=== PATIENT | female | born 1950 | race Caucasian/White ===

== ENCOUNTER 2019-11-22 07:06 | Outpatient (REF) | payer MEDICARE, SELFPAY ==
[2019-11-22 11:02] LABS: Cholesterol 270 mg/dL; HDL Cholesterol 72 mg/dL; LDL Cholesterol Calculated 182 mg/dl; Triglycerides 83 mg/dL
== END 2019-11-22 07:07 | disposition home or self-care (01) ==
LOC: HO.WFDLDS 07:06
PROVIDERS: PCP Internal Medicine; Visit Provider Internal Medicine
DX: E78.5 Hyperlipidemia, unspecified (principal)
CPT/HCPCS: 80061

== ENCOUNTER 2020-09-11 07:05 | Outpatient (REF) | payer MEDICARE, BC, SELFPAY ==
[2020-09-11 10:26] LABS: MANUAL DIFF FLAG NO
[2020-09-11 10:35] LABS: Basophils Percent Auto 0.7 % (0-2); Eosinophils Absolute Auto 0.1 X10*3/uL (0.0-0.4); Hematocrit 42.1 % (37-47); Hemoglobin 13.9 g/dl (12.0-16.0); Imm Gran Abs Auto 0.01 X10*3/uL (0.00-0.03); Imm Gran Pct Auto 0.2 % (0.0-0.4); Lymphocytes Absolute Auto 1.6 X10*3/uL (1.2-4.9); Lymphocytes Percent Auto 35.3 % (20-40); Mean Corpuscular Hemoglobin 30.5 pg (27.0-33.0); Mean Corpuscular Volume 92.5 fL (80-98); Mean Platelet Volume 10.2 fL (9.4-12.3); Monocytes Absolute Auto 0.5 X10*3/uL (0.1-1.2); Monocytes Percent Auto 10.7 % (2-11); Neutrophils Absolute Auto 2.3 X10*3/uL (2.0-8.3); Neutrophils Percent Auto 51.1 % (45-73); Platelet Count 203 X10*3/uL (160-400); Red Blood Count 4.55 X10*6/uL (4.20-5.50); Red Cell Distribution Width 12.9 % (11.0-16.0); White Blood Count 4.5 X10*3/uL (4.8-10.8)
[2020-09-11 10:53] LABS: Glucose Urine UA NEG (NEG); Leukocyte Esterase Urine NEG (NEG); Nitrite Urine NEG (NEG); PH 7.5 (5.0-8.0); Urine Blood NEG (NEG); Urine Ketones NEG (NEG); Urine Protein NEG (NEG-TRACE)
[2020-09-11 10:55] LABS: Appearance Urine CLEAR; Color Urine YELLOW
[2020-09-11 11:04] LABS: Alanine Aminotransferase 23 U/L (0-31); Albumin Level 4.3 g/dL (3.5-5.0); Alkaline Phosphatase 85 U/L (39-117); Anion Gap 11 (12-20); Aspartate Amino Transferase 29 U/L (5-31); Bilirubin Total 0.8 mg/dL (0.0-1.0); Blood Urea Nitrogen 11 mg/dL (9-16); Calcium 9.6 mg/dL (8.4-10.2); Carbon Dioxide 28 mmol/L (22-29); Chloride 104 mmol/L (96-108); Cholesterol 173 mg/dL; Estimated Glomerular Filt Rate > 60; Glucose Fasting 97 mg/dL (60-99); HDL Cholesterol 70 mg/dL; LDL Cholesterol Calculated 90 mg/dl; Sodium 139 mmol/L (135-145); Total Protein 6.8 g/dL (6.5-8.0); Triglycerides 66 mg/dL
[2020-09-11 11:25] LABS: Vitamin D 25-OH Total 45.3 ng/mL (>30)
[2020-09-11 11:27] LABS: Vitamin B12 713 pg/mL (200-900)
== END 2020-09-11 07:06 | disposition home or self-care (01) ==
LOC: HO.WFDLDS 07:05
PROVIDERS: Visit Provider Internal Medicine
DX: E78.00 Pure hypercholesterolemia, unspecified (principal)
CPT/HCPCS: 36415; 80053; 80061; 81003; 82306; 82607; 85025

== ENCOUNTER 2020-09-14 08:05 | Outpatient (REF) | payer MEDICARE, BC, SELFPAY ==
--- NOTE | ~2020-09-14 | XR_ITS ---
EXAMINATION: XR HAND, RIGHT CLINICAL INFORMATION: Right thumb pain. COMPARISON: None TECHNIQUE: PA, lateral, and oblique views of the right hand. FINDINGS: There is mild loss of first MCP, PIP and DIP joint space. There is mild periarticular spurring DIP joints second through fifth digits. No visible acute fracture, dislocation or lytic process seen. The soft tissues are normal. XR/XR hand RT min 3V IMPRESSION: Mild degenerative changes right hand. No visible acute fracture, dislocation or lytic process seen.
== END 2020-09-14 08:06 | disposition home or self-care (01) ==
LOC: HO.XRAY 08:05
PROVIDERS: PCP Internal Medicine; Visit Provider Internal Medicine
DX: M79.644 Pain in right finger(s) (principal)
CPT/HCPCS: 73130

== ENCOUNTER → 2020-10-09 10:52 | Outpatient (BNVA) | payer MEDICARE, BC, SELFPAY | PROVIDERS: Visit Provider Orthopaedic Surgery | DX: M65.311 Trigger thumb, right thumb (principal); E78.00 Pure hypercholesterolemia, unspecified; Z88.6 Allergy status to analgesic agent | CPT/HCPCS: 20550; 99202; J1100 ==

== ENCOUNTER 2020-11-05 14:04 | Outpatient (REF) | payer MEDICARE, BC, SELFPAY ==
--- NOTE | ~2020-11-05 | MM_ITS ---
EXAMINATION: MM SCREENING DIGITAL BREAST TOMOSYNTHESIS, BILATERAL CLINICAL INFORMATION: Screening. Asymptomatic. The lifetime risk of breast cancer based on the Tyrer-Cuzick Model is 6.2%. COMPARISON: Mammography: March 29, 2019 and studies dating back to July 12, 2013 TECHNIQUE: Digital breast tomosynthesis is performed in both the craniocaudal and mediolateral oblique views along with computer-aided detection (CAD). Synthesized 2D images are generated from the tomosynthesis. FINDINGS: There are scattered areas of fibroglandular density (ACR BI-RADS breast composition Category b). There are no significant masses, abnormal calcifications, or other abnormalities. MM/MM tomosynthesis screening BI IMPRESSION: There are no significant changes from prior study. ASSESSMENT: BI-RADS 1: Negative RECOMMENDATION: Routine annual mammography screening. This patient's information was entered into a reminder system with a target due date for their next mammogram.
== END 2020-11-05 14:05 | disposition home or self-care (01) ==
LOC: HO.MAMMO 14:04
PROVIDERS: Visit Provider Internal Medicine
DX: Z12.31 Encounter for screening mammogram for malignant neoplasm of breast (principal)
CPT/HCPCS: 77063; 77067

== ENCOUNTER 2021-09-09 07:34 | Outpatient (REF) | payer MEDICARE, BC, SELFPAY ==
[2021-09-09 10:33] LABS: MANUAL DIFF FLAG NO
[2021-09-09 10:48] LABS: Basophils Percent Auto 0.8 % (0-2); Eosinophils Absolute Auto 0.1 X10*3/uL (0.0-0.4); Eosinophils Percent Auto 2.4 % (0-4); Hematocrit 41.1 % (37.0-47.0); Hemoglobin 13.9 g/dl (12.0-16.0); Imm Gran Abs Auto 0.01 X10*3/uL (0.00-0.03); Imm Gran Pct Auto 0.3 % (0.0-0.4); Lymphocytes Absolute Auto 1.2 X10*3/uL (1.2-4.9); Lymphocytes Percent Auto 31.5 % (20-40); Mean Corpuscular HGB Conc 33.8 g/dl (31.0-35.0); Mean Corpuscular Volume 91.7 fL (80.0-98.0); Mean Platelet Volume 9.9 fL (9.4-12.3); Monocytes Absolute Auto 0.4 X10*3/uL (0.1-1.2); Monocytes Percent Auto 11.5 % (2-11); Neutrophils Percent Auto 53.5 % (45-73); Platelet Count 194 X10*3/uL (160-400); Red Blood Count 4.48 X10*6/uL (4.20-5.50); Red Cell Distribution Width 13.1 % (11.0-16.0); White Blood Count 3.8 X10*3/uL (4.8-10.8)
[2021-09-09 10:58] LABS: Alanine Aminotransferase 32 U/L (0-31); Albumin Level 4.3 g/dL (3.5-5.0); Alkaline Phosphatase 78 U/L (39-117); Anion Gap 11 (12-20); Aspartate Amino Transferase 37 U/L (5-31); Bilirubin Total 0.6 mg/dL (0.0-1.0); Blood Urea Nitrogen 12 mg/dL (9-16); Carbon Dioxide 28 mmol/L (22-29); Chloride 105 mmol/L (96-108); Cholesterol 183 mg/dL; Estimated Glomerular Filt Rate > 60; Glucose Fasting 98 mg/dL (60-99); HDL Cholesterol 64 mg/dL; LDL Cholesterol Calculated 102 mg/dl; Magnesium 2.1 mg/dL (1.6-2.6); Potassium 3.9 mmol/L (3.3-5.1); Sodium 140 mmol/L (135-145); Total Protein 6.7 g/dL (6.5-8.0); Triglycerides 87 mg/dL
[2021-09-09 11:20] LABS: Vitamin D 25-OH Total 59.8 ng/mL (>30)
== END 2021-09-09 07:35 | disposition home or self-care (01) ==
LOC: HO.10HDL 07:34
PROVIDERS: Visit Provider Internal Medicine
DX: E78.00 Pure hypercholesterolemia, unspecified (principal); R25.2 Cramp and spasm
CPT/HCPCS: 36415; 80053; 80061; 82306; 83735; 85025

== ENCOUNTER 2021-12-08 12:29 | Outpatient (REF) | payer MEDICARE, BC, SELFPAY ==
[2021-12-08 14:00] LABS: Alanine Aminotransferase 26 U/L (0-31); Albumin Level 4.4 g/dL (3.5-5.0); Alkaline Phosphatase 89 U/L (39-117); Aspartate Amino Transferase 28 U/L (5-31); Bilirubin Direct 0.2 mg/dL (0.0-0.5); Bilirubin Total 0.4 mg/dL (0.0-1.0)
== END 2021-12-08 12:30 | disposition home or self-care (01) ==
LOC: HO.10HDL 12:29
PROVIDERS: Visit Provider Internal Medicine
DX: E78.00 Pure hypercholesterolemia, unspecified (principal); R94.5 Abnormal results of liver function studies
CPT/HCPCS: 36415; 80076

== ENCOUNTER 2022-01-14 12:07 | Outpatient (REF) | payer MEDICARE, BC, SELFPAY ==
--- NOTE | ~2022-01-14 | MM_ITS ---
EXAMINATION: MM SCREENING DIGITAL BREAST TOMOSYNTHESIS, BILATERAL CLINICAL INFORMATION: Screening. Asymptomatic. The lifetime risk of breast cancer based on the Tyrer-Cuzick Model is 6%. COMPARISON: Mammography: 11/05/2020, 03/29/2019, 01/03/2018 TECHNIQUE: Digital breast tomosynthesis is performed in both the craniocaudal and mediolateral oblique views along with computer-aided detection (CAD). Synthesized 2D images are generated from the tomosynthesis. Additional left MLO view is provided. FINDINGS: There are scattered areas of fibroglandular density (ACR BI-RADS breast composition Category b). There are no significant masses, abnormal calcifications, or other abnormalities. Parenchymal pattern is similar to prior studies. There is no developing density or architectural abnormality. The axilla and skin contours are unremarkable. No significant changes. MM/MM tomosynthesis screening BI IMPRESSION: No mammographic evidence of malignancy. ASSESSMENT: BI-RADS 1: Negative RECOMMENDATION: Routine annual mammography screening. This patient's information was entered into a reminder system with a target due date for their next mammogram.
== END 2022-01-14 12:08 | disposition home or self-care (01) ==
LOC: HO.MAMMO 12:07
PROVIDERS: PCP Internal Medicine; Visit Provider Internal Medicine
DX: Z12.31 Encounter for screening mammogram for malignant neoplasm of breast (principal)
CPT/HCPCS: 77063; 77067

== ENCOUNTER 2022-03-25 08:01 | Outpatient (REF) | payer MEDICARE, BC, SELFPAY ==
[2022-03-25 11:38] LABS: Alanine Aminotransferase 21 U/L (0-31); Albumin Level 4.2 g/dL (3.5-5.0); Alkaline Phosphatase 86 U/L (39-117); Anion Gap 15 (12-20); Aspartate Amino Transferase 25 U/L (5-31); Bilirubin Total 0.6 mg/dL (0.0-1.0); Blood Urea Nitrogen 15 mg/dL (9-16); Calcium 9.4 mg/dL (8.4-10.2); Carbon Dioxide 25 mmol/L (22-29); Chloride 104 mmol/L (96-108); Cholesterol 187 mg/dL; Estimated Glomerular Filt Rate > 60; Glucose Fasting 90 mg/dL (60-99); HDL Cholesterol 59 mg/dL; LDL Cholesterol Calculated 112 mg/dl; Potassium 4.1 mmol/L (3.3-5.1); Sodium 140 mmol/L (135-145); Total Protein 6.5 g/dL (6.5-8.0); Triglycerides 80 mg/dL
== END 2022-03-25 08:02 | disposition home or self-care (01) ==
LOC: HO.10HDL 08:01
PROVIDERS: Visit Provider Internal Medicine
DX: E78.00 Pure hypercholesterolemia, unspecified (principal)
CPT/HCPCS: 36415; 80053; 80061

== ENCOUNTER 2022-09-30 07:30 | Outpatient (REF) | payer MEDICARE, BC, SELFPAY ==
[2022-09-30 09:53] LABS: MANUAL DIFF FLAG NO
[2022-09-30 10:01] LABS: Basophils Percent Auto 0.6 % (0-2); Eosinophils Absolute Auto 0.1 X10*3/uL (0.0-0.4); Eosinophils Percent Auto 2.8 % (0-4); Hemoglobin 13.6 g/dl (12.0-16.0); Imm Gran Abs Auto 0.01 X10*3/uL (0.00-0.03); Imm Gran Pct Auto 0.2 % (0.0-0.4); Lymphocytes Absolute Auto 1.7 X10*3/uL (1.2-4.9); Mean Corpuscular HGB Conc 32.4 g/dl (31.0-35.0); Mean Corpuscular Hemoglobin 29.9 pg (27.0-33.0); Mean Corpuscular Volume 92.3 fL (80.0-98.0); Monocytes Absolute Auto 0.4 X10*3/uL (0.1-1.2); Monocytes Percent Auto 8.8 % (2-11); Neutrophils Absolute Auto 2.4 x10*3/uL (2.0-8.3); Neutrophils Percent Auto 51.6 % (45-73); Platelet Count 207 X10*3/uL (160-400); Red Blood Count 4.55 X10*6/uL (4.20-5.50); Red Cell Distribution Width 13.2 % (11.0-16.0); White Blood Count 4.6 X10*3/uL (4.8-10.8)
[2022-09-30 10:21] LABS: Alanine Aminotransferase 17 U/L (0-31); Alkaline Phosphatase 75 U/L (39-117); Anion Gap 10 (12-20); Aspartate Amino Transferase 25 U/L (5-31); Bilirubin Total 0.4 mg/dL (0.0-1.0); Blood Urea Nitrogen 14 mg/dL (9-16); Calcium 9.5 mg/dL (8.4-10.2); Carbon Dioxide 29 mmol/L (22-29); Chloride 105 mmol/L (96-108); Estimated Glomerular Filt Rate > 60; Glucose Fasting 103 mg/dL (60-99); Potassium 4.1 mmol/L (3.3-5.1); Sodium 140 mmol/L (135-145); Total Protein 6.8 g/dL (6.5-8.0)
== END 2022-09-30 07:31 | disposition home or self-care (01) ==
LOC: HO.10HDL 07:30
PROVIDERS: Visit Provider Internal Medicine
DX: E78.9 Disorder of lipoprotein metabolism, unspecified (principal); I83.90 Asymptomatic varicose veins of unspecified lower extremity
CPT/HCPCS: 36415; 80053; 85025

== ENCOUNTER 2023-01-22 12:04 | Outpatient (REF) | payer MEDICARE, BC, SELFPAY | END 2023-01-22 12:05 | disposition home or self-care (01) | LOC: HO.MAMMO 12:04 | PROVIDERS: PCP Internal Medicine; Visit Provider Internal Medicine | DX: Z12.31 Encounter for screening mammogram for malignant neoplasm of breast (principal) | CPT/HCPCS: 77063; 77067 ==

== ENCOUNTER → 2023-01-22 12:15 | Outpatient (BNV) | payer MEDICARE, BC, SELFPAY | PROVIDERS: PCP Internal Medicine; Visit Provider Radiology Diagnostic Radiology | DX: Z12.31 Encounter for screening mammogram for malignant neoplasm of breast (principal) | CPT/HCPCS: 77063; 77067 ==

== ENCOUNTER 2023-03-11 08:11 | Outpatient (REF) | payer MEDICARE, BC, SELFPAY ==
[2023-03-11 11:31] LABS: Cholesterol 186 mg/dL (<200); HDL Cholesterol 64 mg/dL (>40); LDL Cholesterol Calculated 106 mg/dL (<100); Triglycerides 83 mg/dL (<150)
== END 2023-03-11 08:12 | disposition home or self-care (01) ==
LOC: HO.10HDL 08:11
PROVIDERS: Visit Provider Internal Medicine
DX: E78.00 Pure hypercholesterolemia, unspecified (principal)
CPT/HCPCS: 36415; 80061

== ENCOUNTER 2023-10-28 07:45 | Outpatient (REF) | payer MEDICARE, BC, SELFPAY ==
[2023-10-28 10:23] LABS: MANUAL DIFF FLAG NO
[2023-10-28 11:04] LABS: Alanine Aminotransferase 19 U/L (0-31); Albumin Level 4.2 g/dL (3.5-5.0); Alkaline Phosphatase 83 U/L (39-117); Anion Gap 12 (12-20); Aspartate Amino Transferase 24 U/L (5-31); Bilirubin Total 0.6 mg/dL (0.0-1.0); Blood Urea Nitrogen 15 mg/dL (9-16); Calcium 9.5 mg/dL (8.4-10.2); Carbon Dioxide 29 mmol/L (22-29); Chloride 104 mmol/L (96-108); Cholesterol 201 mg/dL (<200); Estimated Glomerular Filt Rate > 60; Glucose Fasting 92 mg/dL (60-99); HDL Cholesterol 65 mg/dL (>40); LDL Cholesterol Calculated 119 mg/dL (<100); Potassium 3.6 mmol/L (3.3-5.1); Sodium 141 mmol/L (135-145); Total Protein 7.1 g/dL (6.5-8.0); Triglycerides 87 mg/dL (<150); Vitamin D 25-OH Total 75.3 ng/mL (>30)
[2023-10-28 11:20] LABS: Basophils Percent Auto 0.6 % (0-2); Eosinophils Absolute Auto 0.1 X10*3/uL (0.0-0.4); Eosinophils Percent Auto 2.4 % (0-4); Hematocrit 42.8 % (37.0-47.0); Hemoglobin 14.4 g/dl (12.0-16.0); Imm Gran Abs Auto 0.01 X10*3/uL (0.00-0.03); Imm Gran Pct Auto 0.2 % (0.0-0.4); Lymphocytes Percent Auto 39.4 % (20-40); Mean Corpuscular HGB Conc 33.6 g/dl (31.0-35.0); Mean Corpuscular Hemoglobin 30.5 pg (27.0-33.0); Mean Corpuscular Volume 90.7 fL (80.0-98.0); Mean Platelet Volume 9.5 fL (9.4-12.3); Monocytes Absolute Auto 0.6 X10*3/uL (0.1-1.2); Monocytes Percent Auto 11.4 % (2-11); Neutrophils Absolute Auto 2.3 x10*3/uL (2.0-8.3); Platelet Count 215 X10*3/uL (160-400); Red Blood Count 4.72 X10*6/uL (4.20-5.50); Red Cell Distribution Width 13.1 % (11.0-16.0)
== END 2023-10-28 07:46 | disposition home or self-care (01) ==
LOC: HO.10HDL 07:45
PROVIDERS: Visit Provider Internal Medicine
DX: E78.00 Pure hypercholesterolemia, unspecified (principal); R42 Dizziness and giddiness; E55.9 Vitamin D deficiency, unspecified; I83.90 Asymptomatic varicose veins of unspecified lower extremity
CPT/HCPCS: 36415; 80053; 80061; 82306; 85025

== ENCOUNTER 2023-11-01 09:56 | Outpatient (REF) | payer MEDICARE, BC, SELFPAY ==
--- NOTE | ~2023-11-01 | XR_ITS ---
EXAMINATION: XR KNEE, LEFT CLINICAL INFORMATION: Knee pain COMPARISON: None available. TECHNIQUE: Four views of the left knee. FINDINGS: There are mild degenerative changes seen tricompartmental narrowing, most marked medially. There is minimal osteophyte formation. No chondrocalcinosis. No joint effusion. Small exostosis is noted on the medial fibular metaphysis. XR/XR knee LT 4V IMPRESSION: Mild tricompartmental degenerative changes. No acute finding. Electronically signed by: Kenroy Ruiz MD 11/01/2023 11:22 AM EDT
--- NOTE | ~2023-11-01 | US_ITS ---
EXAMINATION: LEFT LOWER EXTREMITY VENOUS DOPPLER ULTRASOUND CLINICAL INFORMATION: Left knee pain. Left leg edema. Evaluate for DVT. COMPARISON: None. TECHNIQUE: Doppler spectral analysis and color flow Doppler imaging was performed of the left lower extremity. Compression and augmentation maneuvers were performed. FINDINGS: The left common femoral vein, greater saphenous vein takeoff, femoral vein, and popliteal vein are normally compressible with normal augmentation responses and phasic changes seen with Doppler imaging. Slow flow within the popliteal vein is seen. The midcalf peroneal and posterior tibial veins are patent as well. No popliteal cyst is seen. US/US venous duplex LE LT IMPRESSION: No evidence of deep venous thrombosis in the left lower extremity. Electronically signed by: Elicia Bradley MD 11/01/2023 11:34 AM EDT
== END 2023-11-01 09:57 | disposition home or self-care (01) ==
LOC: HO.US 09:56
PROVIDERS: PCP Internal Medicine; Visit Provider Internal Medicine
DX: R22.42 Localized swelling, mass and lump, left lower limb (principal); M25.562 Pain in left knee
CPT/HCPCS: 73564; 93971

== ENCOUNTER 2023-11-05 10:59 | Outpatient (REF) | payer MEDICARE, BC, SELFPAY ==
--- NOTE | ~2023-11-05 | XR_ITS ---
EXAMINATION: XR ANKLE, LEFT CLINICAL INFORMATION: Left ankle pain. COMPARISON: None available. TECHNIQUE: AP, lateral, and mortise views of the left ankle. FINDINGS: Alignment is anatomic. Ankle mortise is maintained. The talar dome is intact. No displaced fracture or dislocation. No significant ankle joint effusion. Small posterior and plantar calcaneal disease place. XR/XR ankle LT min 3V IMPRESSION: No acute abnormality. Electronically signed by: Joseph Mackey MD 11/05/2023 01:27 PM EDT
== END 2023-11-05 11:00 | disposition home or self-care (01) ==
LOC: HO.XRAY 10:59
PROVIDERS: PCP Internal Medicine; Visit Provider Internal Medicine
DX: M25.572 Pain in left ankle and joints of left foot (principal)
CPT/HCPCS: 73610

== ENCOUNTER 2023-12-07 09:56 | Outpatient (REF) | payer MEDICARE, BC, SELFPAY | END 2023-12-07 09:57 | disposition home or self-care (01) | LOC: HO.HOSX 09:56 | PROVIDERS: Visit Provider Physician Assistant | DX: M25.569 Pain in unspecified knee (principal) | CPT/HCPCS: 73565; 99202 ==

== ENCOUNTER 2023-12-07 13:54 | Outpatient (AMB) | payer MEDICARE, BC, SELFPAY ==
--- NOTE | 2023-12-07 14:15 | A.OFFVIS_ITS ---
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 Patient reports pain in her leg since September, her knee pain presented around October. She has difficulty with waling and getting up from a sitting position. She was seen by her PCP, Dr De Leon and was told having bursitis of hip and sciatic nerve. She was instructed to rest, heat and elevate which provided her some relief. She also complains of tenderness in her ankle where varicose veins are visible. States her leg feels heavy and her pain travels to different areas of her leg. Finds some relief with at home stretches. Hx of left leg vein ablation. 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 She was seen by Dr. De Leon on 11/01/23. X-rays of the left knee were obtained and was referred to our office for further evaluation of left knee pain. While in the office today, the patient reports experiencing left lower extremity pain since 09/2023, and she started to have left knee pain around 10/2023. She reports difficulty with ambulation and moving from a sitting to a standing position. She is diagnosed with trochanteric bursitis of the left hip and sciatic nerve by her PCP. She was instructed to rest, heat, and elevate, which provided mild relief. She also complains of tenderness in her left ankle where varicose veins are visible. She states her left lower extremity feels heavy, and her pain travels to different areas of her leg. She finds some relief with home stretches. She has a history of left leg vein ablation. 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 No ecchymosis, erythema, or joint effusion. No tenderness to palpation along the medial or lateral joint lines. Full knee extension and flexion. Negative misael?s. Negative anterior drawer. NVI. Assessment & Plan Assessment & Plan (1) Neuritis of left lower extremity: Code(s): G57.92 - Unspecified mononeuropathy of left lower limb Category: Medical Plan Ms. Pelaez is a 73-year-old female who presents in the office today for an evaluation of left knee pain. She was seen by Dr. De Leon on 11/01/23. X-rays of the left knee were obtained and was referred to our office for further evaluation of left knee pain. While in the office today, the patient reports experiencing left lower extremity pain since 09/2023, and she started to have left knee pain around 10/2023. She reports difficulty with ambulation and moving from a sitting to a standing position. She is diagnosed with trochanteric bursitis of the left hip and sciatic nerve by her PCP. She was instructed to rest, heat, and elevate, which provided mild relief. She also complains of tenderness in her left ankle where varicose veins are visible. She states her left lower extremity feels heavy, and her pain travels to different areas of her leg. She finds some relief with home stretches. She has a history of left leg vein ablation. The patient is scheduled for a follow-up appointment with Vascular Surgeons for further evaluation. I encouraged the patient to follow up with them to assess the possibility of vascular involvement with her pain. In regards to her left lower extremity pain that migrates from the side of the left knee and down to the left ankle. I would like her to be evaluated by Dr. Murillo for further evaluation and treatment, as I suspect that a potential neuro component may be contributing to her pain if her vascular workup is negative. Follow-up will be with Dr. Murillo and Vascular surgery. No additional orthopedic workup is indicated at this time. X-rays of the left knee which were obtained while in the office today and were reviewed by me, Melia Carey PA-C, revealed: Negative for acute fracture dislocation. Arthritic changes. X-rays of the left knee, obtained on 11/01/23, revealed: Mild tricompartmental degenerative changes. No acute findings. Orders: Orders XR knee standing BI 12/07/23 M25.569 - Pain in unspecified knee Patient Instructions: Scribed by Becky Velez medical education coordinator, for Melia Carey PA-C on 12/07/23 at 2:40 pm EST. Coding Level of Care Code New Pt Level 4 (46070) Diagnoses Neuritis of left lower extremity G57.92
[2023-12-07 14:16] VITALS: BMI 30.1
== END 2023-12-07 15:02 | disposition home or self-care (01) ==
PROVIDERS: PCP Internal Medicine; Visit Provider Physician Assistant
DX: G57.92 Unspecified mononeuropathy of left lower limb (principal)
CPT/HCPCS: 99203

== ENCOUNTER 2023-12-23 09:52 | Outpatient (AMB) | payer MEDICARE, BC, SELFPAY ==
[2023-12-23 09:58] VITALS: BMI 30.1
--- NOTE | 2023-12-23 09:58 | A.OFFVIS_ITS ---
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 Pt does have some spider veins and sensitivity near a venous cluster on her left ankle. Pt states hx of Left LE venous ablation in 2008 and has thigh high compression but states they roll down and cause tourniquet effect. Has always worked on feet. 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 De Leon for ongoing left lower extremity heaviness and swelling along with pain. She has a history left lower extremity laser ablation in [address] White. She states she has been wearing compression type leggings up to mid thigh since then. She has had an ultrasound for rule out DVT which was negative. Complaints include pain and sensitivity over varicosities, swelling of lower extremities, cramping, fatigue, and heaviness of the lower extremities. It has been affecting their daily activities including walking, standing, and physical activity. It is noted more so in left leg. She has also been dealing with a left hip bursitis and left knee pain since September. She states the varicose veins/heaviness has been worse since September. Patient has a history of a left lower extremity laser [place] [address] White Patient denies any history of DVT/ PE. Patient denies any history of phlebitis. Trial of compression includes - compression type leggings and elevation They now present for vascular evaluation regarding their varicose veins. 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 Review of Systems Const Reports as per HPI and Denies weakness ENT Reports Normal hearing present and Denies dizziness Card Reports as per HPI, Denies chest pain, Denies chest pain at rest, Denies chest pain with activity, Denies dyspnea and Denies dyspnea on exertion Resp Reports as per HPI, Denies cough, Denies dyspnea and Denies dyspnea on exertion GI Reports as per HPI, Denies abdominal pain, Denies nausea and Denies vomiting Musc Denies numbness Skin/Breast Reports as per HPI, Denies erythema and Denies wounds Neuro Reports Normal hearing present, Denies dizziness, Denies numbness, Denies Sensory deficit (Neuro) and Denies weakness Psych Reports no additional complaints Endo Reports no additional complaints Physical Exam Vital Signs: BMI result Body Mass Index 30.1 Const General: healthy appearing and no acute distress Orientation/consciousness: patient oriented x3 HEENT Head: Yes normal to inspection Ears: hearing grossly normal bilaterally Mouth: Normal oral and palatal mucosa present Resp Effort & Inspection: normal respiratory effort and able to speak in complete sentences Auscultation: clear to auscultation bilaterally Cardio Jugular venous distension: no JVD Rate: regular rate Rhythm: regular rhythm Heart sounds: S1 normal heart sound present and S2 normal heart sound present Bruits: no abdominal aortic bruits, no carotid bruits, no femoral bruits and no renal bruits Peripheral pulses: Peripheral pulses 2+ throughout GI Inspection: Yes normal to inspection Palpation (GI): No Abdominal aortic bruit present Skin General skin exam: no rashes or lesions noted Wounds: no wounds Hair: normal Neuro General: patient oriented x3 Cranial nerves: Yes Normal hearing present Cognition (Neuro): normal cognition Gait exam (Neuro): Normal gait present Motor exam (neuro): 5/5 motor strength present throughout Sensory Exam: No Sensory deficit (Neuro) Extrem Other: Left lower extremity: Discoloration noted around the ankle. Trace peripheral edema noted. Several approximately 3-4 cm tortuosity is noted posteriorly. Strong and palpable DP pulses Right lower extremity: Multiple spider veins noted. No trace edema noted. CEAP: C - 4 E - primary A - superficial P - reflux General: Yes normal to inspection, Yes full ROM, Yes capillary refill normal and Yes normal gait Results Reviewed Results Reviewed: Ultrasound of lower extremity: Negative for DVT Assessment & Plan Assessment & Plan (1) Varicose veins of both lower extremities with inflammation: Code(s): I83.11 - Varicose veins of right lower extremity with inflammation; I83.12 - Varicose veins of left lower extremity with inflammation Category: Medical Plan: Elissa is presenting today as a referral for PCP for ongoing varicose veins and concerns venous insufficiency. In short, the patient has evidence of venous insufficiency. I have discussed the pathophysiology with the patient. In addition I have provided informational material regarding venous disease to the patient. We have discussed conservative measures including compression, elevation, and exercise. I have also provided a handout regarding appropriate use of compression stockings and where to purchase good compression stockings as well. I have taken the liberty of ordering venous insufficiency testing with the patient. They will follow up with me after testing. The patient had an opportunity to ask questions regarding the treatment plan. All questions were answered. Imaging studies, laboratory studies and physical exam results were discussed and reviewed in detail. No major barriers to understanding were identified. The patient expressed understanding and agreement with the above treatment plan. The patient is aware they should contact our office by phone for worsening of the current condition or the appearance of new symptoms. Thank you for allowing me to participate in the vascular care of this patient. If you have any questions or concerns regarding the treatment for the above condition please do not hesitate to contact me. The office telephone contact is [phone]. This note is constructed using voice recognition software. While every effort has been made to ensure accuracy, district branch manager errors may have been included. Thank you for allowing me to participate in the care of your patient. Yours sincerely, KIMBERLY Goins Orders: Orders US venous duplex LE BI 1 Week I83.11 - Varicose veins of right lower extremity with inflammation, I83.12 - Varicose veins of left lower extremity with inflammation Coding Level of Care Code New Pt New Pt Level 4 (68331) Patient Type New Diagnoses Varicose veins of both lower extremities with inflammation I83.11; I83.12
== END 2023-12-23 10:42 | disposition home or self-care (01) ==
LOC: HO.HVS 09:52
PROVIDERS: PCP Internal Medicine; Visit Provider Physician Assistant Surgical
DX: I83.11 Varicose veins of right lower extremity with inflammation (principal); I83.12 Varicose veins of left lower extremity with inflammation
CPT/HCPCS: 99204

== ENCOUNTER → 2023-12-23 09:52 | Outpatient (BNVA) | payer MEDICARE, BC, SELFPAY | PROVIDERS: PCP Internal Medicine; Visit Provider Physician Assistant Surgical | DX: I83.11 Varicose veins of right lower extremity with inflammation (principal); I83.12 Varicose veins of left lower extremity with inflammation | CPT/HCPCS: 99202 ==

== ENCOUNTER 2023-12-31 08:18 | Outpatient (AMB) | payer MEDICARE, BC, SELFPAY ==
--- NOTE | 2023-12-31 08:22 | MHC.OFFVIS ---
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 Patient states she began having left hip pain in October,. Patient is unable to describe her symptoms but does report pain on the left hip, left knee, and left foot. Patient has tried not tried PT or steroid injections. She is using a cane to aid with ambulation. Patient referred by KIMBERLY Higuera. Allergies aspirin Allergy (Unknown, Verified 12/31/23 08:23) swollen joints Medication List - Last Reconciled 12/31/23 by Camryn Obregon MD estradiol 0.01%(0.1mg/gram) vaginal simvastatin 10 mg PO BEDTIME HPI Comments Details: She reports left medial knee pain, since October, while walking around a track. She usually walks an hour every morning for that. Did not twist or fall. She felt stress on the left knee and maybe the left foot was turned. Did not swell, no redness. She noticed some sensation on left medial ankle too. No fever. Did not notice any edema. Though she did measure yesterday, she noted left ankle and leg is half an inch bigger than right. Sometimes she would get some discomfort on left medial thigh and left groin. 10 days ago, was being careful with cane, as going down a step with left leg/foot, heel got caught on the rise, then felt the knee get thrown forward, felt some clicking, causing pain. She iced it. Usually mornings are better but worse by end of the day. Denies low back pain. Denies knee injuries. Used to do gymnastics and dance. No PT yet. 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 MSK: Despite pain, range of motion of hip, knee and ankle within normal grossly. Left knee is not warm to touch, no redness. There is mild palpable left medial knee effusion. There is tenderness on left medial joint line of the knee. No ligamentous laxity or crepitant. No tenderness over patella. Patellar grind test is negative. Left Anterior drawer test is negative. Left Niko test is negative. Left Posterior drawer test is negative. Left Valgus and varus stress tests are negative. Left Brii test is slightly positive. Noted bruise or varicose vein on left medial ankle. No signs of ankle instability. No tenderness to touch on medial or lateral malleoli. No calf tenderness. No leg edema. No palpable mass or Mcdonald's cyst on posterior knee. Strength is 5/5 in all muscle groups tested. No increased tone noted. Neurological: Babinski was down going bilaterally. Clonus was negative. Gait is antalgic. Results Reviewed Results Reviewed: I independently reviewed the results of the following: Reviewed x-ray images with patient. I believe there is narrowing of the left medial joint space. Also think there is some lateral patellar tracking. X-ray done 12/07/2023 has not been officially read by [facility]. Ordering Physician: Noble De Leon MD Date of Service: 11/01/23 Procedure(s): XR knee LT 4V Accession Number(s): [id number] cc: Noble De Leon MD~ EXAMINATION: XR KNEE, LEFT CLINICAL INFORMATION: Knee pain COMPARISON: None available. TECHNIQUE: Four views of the left knee. FINDINGS: There are mild degenerative changes seen tricompartmental narrowing, most marked medially. There is minimal osteophyte formation. No chondrocalcinosis. No joint effusion. Small exostosis is noted on the medial fibular metaphysis. XR/XR knee LT 4V IMPRESSION: Mild tricompartmental degenerative changes. No acute finding. I reviewed records from the following: Orthopedics Assessment & Plan Assessment & Plan (1) Acute meniscal injury of left knee: Code(s): S83.8X2A - Sprain of other specified parts of left knee, initial encounter Category: Medical Qualifiers: Encounter type: initial encounter Qualified Code(s): S83.8X2A - Sprain of other specified parts of left knee, initial encounter (2) Left knee DJD: Code(s): M17.12 - Unilateral primary osteoarthritis, left knee Category: Medical Qualifiers: Osteoarthritis type: primary Qualified Code(s): M17.12 - Unilateral primary osteoarthritis, left knee Plan The simplest explanation would be left knee arthritis, primarily on medial joint space. Arthritis can cause the pain and effusion that we saw today. However given mechanism of injury, I can not completely rule out a left medial meniscus tear. Further imaging may be needed. Left knee pain could be radiating upwards to the thigh and downwards to the ankle. I did not see signs of ankle sprain today. She does have either a bruise or varicose vein on left medial ankle. She has an appointment to see vascular. No signs of lumbar radiculopathy. Patient denies any low back pain. Treatment options discussed with patient. We agreed on sending her to physical therapy. Would like physical therapy to work on vastus muscles and prevent further patellar tracking. Work on gait training, avoidance of falls. We also agreed on getting a left knee MRI to rule out medial meniscus tear. This would help with prognosis and further treatment options. She may start physical therapy without the MRI, with instructions given as above. We looked at the knee brace that she bought [id number]. Showed her how to wear it the right way. Patient to wear this with ambulation. We looked at the cane she was using. I thought it was too low and advised to see if she can adjust it higher and if that would be more comfortable for her. We talked about NSAIDs but she has allergy to aspirin. Can apply ice. Assessment and plan discussed with patient, and patient was agreeable. All questions were answered thoroughly. Follow up after MRI. Call sooner if needed. Camryn Obregon MD, JELENA Board Certified, [place] [employer] and [employer] (ABPMR) Board Certified, [place] [employer] (ABEM) Orders: Orders PT Evaluation and Treatment Today M17.12 - Unilateral primary osteoarthritis, left knee, S83.8X2A - Sprain of other specified parts of left knee, initial encounter MR knee LT wo con Today S83.207A - Unspecified tear of unspecified meniscus, current injury, left knee, initial encounter Coding Level of Care Code New Pt Level 4 (15476) Diagnoses Acute meniscal injury of left knee, initial encounter S83.8X2A Encounter type: initial encounter Primary osteoarthritis of left knee M17.12 Osteoarthritis type: primary
[2023-12-31 08:23] VITALS: BMI 30.1
== END 2023-12-31 09:14 | disposition home or self-care (01) ==
PROVIDERS: PCP Internal Medicine; Visit Provider Physical Medicine & Rehabilitation
DX: S83.8X2A Sprain of other specified parts of left knee, initial encounter (principal); M17.12 Unilateral primary osteoarthritis, left knee
CPT/HCPCS: 99203

== ENCOUNTER 2023-12-31 08:18 | Outpatient (REF) | payer MEDICARE, BC, SELFPAY | END 2023-12-31 08:19 | disposition home or self-care (01) | LOC: HO.HOSX 08:18 | PROVIDERS: PCP Internal Medicine; Visit Provider Physical Medicine & Rehabilitation | DX: S83.8X2A Sprain of other specified parts of left knee, initial encounter (principal); M17.12 Unilateral primary osteoarthritis, left knee | CPT/HCPCS: 99202 ==

== ENCOUNTER 2024-01-04 10:17 | Outpatient (REF) | payer MEDICARE, BC, SELFPAY ==
--- NOTE | ~2024-01-04 | US_ITS ---
EXAMINATION: US TRIPLEX LOWER EXTREMITY, BILATERAL CLINICAL INFORMATION: Varicose veins, right lower extremity. COMPARISON: Correlated to DVT ultrasound dated November 01, 2023. TECHNIQUE: Color-flow triplex imaging with spectral analysis and compression Doppler were performed on the bilateral lower extremities. FINDINGS: Submitted for interpretation on January 17, 2024. Respiratory variation, normal compression and augmented flow are noted throughout the bilateral lower extremities. The visualized common femoral vein, superficial femoral vein, profunda femoral vein, popliteal vein and midcalf peroneal and posterior tibial venous segments show no evidence of deep venous thrombosis bilaterally. There is no Mcdonald's cyst. The diameter of the interrogated veins both lower extremities displayed on the chart on PACS system. US/US venous duplex LE BI IMPRESSION: No acute deep venous thrombosis interrogated veins bilateral lower extremities. . Electronically signed by: Timmy Hebert MD 01/17/2024 01:11 PM [facility]
== END 2024-01-04 10:18 | disposition home or self-care (01) ==
LOC: HO.US 10:17
PROVIDERS: PCP Internal Medicine; Visit Provider Physician Assistant Surgical
DX: I83.11 Varicose veins of right lower extremity with inflammation (principal); I83.12 Varicose veins of left lower extremity with inflammation
CPT/HCPCS: 93970

== ENCOUNTER → 2024-01-04 10:20 | Outpatient (BNV) | payer MEDICARE, BC, SELFPAY | PROVIDERS: PCP Internal Medicine; Visit Provider Radiology Diagnostic Radiology | DX: I83.11 Varicose veins of right lower extremity with inflammation (principal); I83.12 Varicose veins of left lower extremity with inflammation | CPT/HCPCS: 93970 ==

== ENCOUNTER 2024-01-08 19:28 | Outpatient (REF) | payer MEDICARE, BC, SELFPAY | END 2024-01-08 19:29 | disposition home or self-care (01) | LOC: HO.MRI 19:28 | PROVIDERS: PCP Internal Medicine; Visit Provider Physical Medicine & Rehabilitation | DX: Z13.89 Encounter for screening for other disorder (principal) ==

== ENCOUNTER 2024-01-18 13:51 | Outpatient (AMB) | payer MEDICARE, BC, SELFPAY ==
--- NOTE | 2024-01-18 13:55 | A.OFFVIS_ITS ---
Intake Visit Reasons: follow up s/p US 01/04/24 Intake Note: Patient presents for follow up US performed on 01/04/24. Patient states she is having trouble getting up. Allergies aspirin Allergy (Unknown, Verified 01/18/24 13:57) swollen joints HPI HPI follow up s/p US 01/04/24: Details: Elissa is presenting today for a follow up to her venous insufficiency ultrasound, from 01/04/24. She continues to complain of pain in the left lower extremity from mid thigh on the medial aspect down to her lower alicea area. She does have a history of a left lower extremity laser ablation with Dr. White in 2008. 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 Review of Systems Const Reports as per HPI and Denies weakness ENT Reports Normal hearing present and Denies dizziness Card Reports as per HPI, Denies chest pain, Denies chest pain at rest, Denies chest pain with activity, Denies dyspnea and Denies dyspnea on exertion Resp Reports as per HPI, Denies cough, Denies dyspnea and Denies dyspnea on exertion GI Reports as per HPI, Denies abdominal pain, Denies nausea and Denies vomiting Musc Denies numbness Skin/Breast Reports as per HPI, Denies erythema and Denies wounds Neuro Reports Normal hearing present, Denies dizziness, Denies numbness, Denies Sensory deficit (Neuro) and Denies weakness Psych Reports no additional complaints Endo Reports no additional complaints Physical Exam Const General: healthy appearing and no acute distress Orientation/consciousness: patient oriented x3 HEENT Head: Yes normal to inspection Ears: hearing grossly normal bilaterally Mouth: Normal oral and palatal mucosa present Resp Effort & Inspection: normal respiratory effort and able to speak in complete sentences Auscultation: clear to auscultation bilaterally Cardio Jugular venous distension: no JVD Rate: regular rate Rhythm: regular rhythm Heart sounds: S1 normal heart sound present and S2 normal heart sound present Bruits: no abdominal aortic bruits, no carotid bruits, no femoral bruits and no renal bruits Peripheral pulses: Peripheral pulses 2+ throughout GI Inspection: Yes normal to inspection Palpation (GI): No Abdominal aortic bruit present Skin General skin exam: no rashes or lesions noted Wounds: no wounds Hair: normal Neuro General: patient oriented x3 Cranial nerves: Yes Normal hearing present Cognition (Neuro): normal cognition Gait exam (Neuro): Normal gait present Motor exam (neuro): 5/5 motor strength present throughout Sensory Exam: No Sensory deficit (Neuro) Extrem Other: Left lower extremity: Discoloration noted around the ankle. Trace peripheral edema noted. Several approximately 3-4 cm tortuosity is noted posteriorly. Strong and palpable DP pulses Right lower extremity: Multiple spider veins noted. No trace edema noted. General: Yes normal to inspection, Yes full ROM, Yes capillary refill normal and Yes normal gait Results Reviewed Results Reviewed: Brief summary of venous insufficiency testing is as follows: right great saphenous vein: positive from above the knee to the ankle right small saphenous vein: positive right accessory vein: none present left great saphenous vein: positive from the knee and below left small saphenous vein: negative left accessory vein: none present Please note there is no evidence of any venous aneurysms or significant tortuosity Assessment & Plan Assessment & Plan (1) Varicose veins of both lower extremities with inflammation: Code(s): I83.11 - Varicose veins of right lower extremity with inflammation; I83.12 - Varicose veins of left lower extremity with inflammation Category: Medical Plan: Elissa is presenting today for follow up to a venous insufficiency US from 01/03. It showed insufficiency in the left and right GSV as well as the right SSV. She continues to endorse pain on the medial aspect of her left lower extremity from mid-thigh to ankle area. She is also concerned for knee pain as well and is seeking treatment for that. The patient has been treated conservatively with compression stockings, leg elevation and exercise program for over 3 months. Patient has been compliant with treatment and instructions. They continue to be a source of swelling and pain. I do not anticipate this course of treatment will alter the underlying etiology. I am concerned further delay will only contribute to chronic venous insufficiency. We had a lengthy discussion that we could perform a venous seal on the left lower extremity, which could relieve some pain and swelling, but we are not sure if it will completely make it go away. We discussed she could also have a procedure done on her right lower extremity as well; however, she is not currently having any concerns in the right lower extremity. We discussed that she can think about the procedure and we gave her paperwork about the Venaseal as well as compression stockings. We discussed that she can reach out to our office at any point to schedule an appo intment to get a procedure done. I discussed that after some time; however, we may need to repeat the ultrasound testing. If there are any questions or concerns, please do not hesitate to reach out to us. Coding Level of Care Code Est Pt Level 4 (07052) Diagnoses Varicose veins of both lower extremities with inflammation I83.11; I83.12 Comment Review of venous insufficiency ultrasound
== END 2024-01-18 14:30 | disposition home or self-care (01) ==
PROVIDERS: PCP Internal Medicine; Visit Provider Physician Assistant Surgical
DX: I83.11 Varicose veins of right lower extremity with inflammation (principal); I83.12 Varicose veins of left lower extremity with inflammation
CPT/HCPCS: 99214

== ENCOUNTER → 2024-01-18 13:51 | Outpatient (BNVA) | payer MEDICARE, BC, SELFPAY | PROVIDERS: PCP Internal Medicine; Visit Provider Physician Assistant Surgical | DX: I83.11 Varicose veins of right lower extremity with inflammation (principal); I83.12 Varicose veins of left lower extremity with inflammation; I83.812 Varicose veins of left lower extremity with pain | CPT/HCPCS: 99212 ==

== ENCOUNTER 2024-01-20 10:54 | Outpatient (AMB) | payer MEDICARE, BC, SELFPAY ==
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
[2024-01-20 10:56] VITALS: BMI 30.1
== END 2024-01-20 11:09 | disposition home or self-care (01) ==
LOC: HO.HOS 10:54
PROVIDERS: PCP Internal Medicine; Visit Provider Physical Medicine & Rehabilitation
DX: M17.12 Unilateral primary osteoarthritis, left knee (principal); S83.8X2A Sprain of other specified parts of left knee, initial encounter
CPT/HCPCS: 99442

== ENCOUNTER 2024-01-28 12:07 | Outpatient (REF) | payer MEDICARE, BC, SELFPAY | END 2024-01-28 12:08 | disposition home or self-care (01) | LOC: HO.MAMMO 12:07 | PROVIDERS: PCP Internal Medicine; Visit Provider Internal Medicine | DX: Z12.31 Encounter for screening mammogram for malignant neoplasm of breast (principal) | CPT/HCPCS: 77063; 77067 ==

== ENCOUNTER → 2024-01-28 12:15 | Outpatient (BNV) | payer MEDICARE, BC, SELFPAY | PROVIDERS: PCP Internal Medicine; Visit Provider Internal Medicine | DX: Z12.31 Encounter for screening mammogram for malignant neoplasm of breast (principal) | CPT/HCPCS: 77063; 77067 ==

== ENCOUNTER 2024-02-18 11:52 | Outpatient (AMB) | payer MEDICARE, BC, SELFPAY ==
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
== END 2024-02-18 12:48 | disposition home or self-care (01) ==
PROVIDERS: PCP Internal Medicine; Visit Provider Physical Medicine & Rehabilitation
DX: S83.8X2A Sprain of other specified parts of left knee, initial encounter (principal); M17.12 Unilateral primary osteoarthritis, left knee; M25.462 Effusion, left knee
CPT/HCPCS: 20610; 99214

== ENCOUNTER 2024-02-18 11:52 | Outpatient (REF) | payer MEDICARE, BC, SELFPAY ==
[2024-02-18 14:00] LABS: MN% 90.9 %; PMN% 9.1 %; RBC Synovial Fluid 0.013 X10*6/uL
[2024-02-18 14:54] LABS: BF Shift QC OK YES; Lymphocytes Synovial Fluid 12 %; Monocytes Synovial Fluid 3 %; Neutrophils Synovial Fluid 6 %; Other Cells Synovial Fluid 79; Source Synovial Fluid LEFT KNEE
== END 2024-02-18 11:53 | disposition home or self-care (01) ==
LOC: HO.LAB 11:52
PROVIDERS: PCP Internal Medicine; Visit Provider Physical Medicine & Rehabilitation
DX: M25.462 Effusion, left knee (principal); M17.12 Unilateral primary osteoarthritis, left knee; S83.8X2A Sprain of other specified parts of left knee, initial encounter
CPT/HCPCS: 20610; 89051; 89060; 99212

== ENCOUNTER 2024-03-10 12:59 | Outpatient (RCR) | payer MEDICARE, BC, SELFPAY ==
--- NOTE | 2024-01-19 15:29 | MHC.PT.EP ---
[facility] [place] Office [place] Office [place] Office [address] Lyle Ramirez [address] [phone] F: [phone] F: [phone] F: [phone] F: [phone] Physical Therapy Plan of Care Date of Evaluation: 01/19/24 Date of Surgery: Diagnosis: LEFT KNEE DJD, ACUTE MENISCAL INJURY LEFT KNEE-> STRENGTHENING VASTUS MUSCLES, PREVENT PATELLAR TRACKING DYSF; WORK ON SAFE GAIT, GETTING AN MRI TO R/O MENISCAL TEAR Assessment: 73 YO FEMALE REF TO PT WITH DX OF Lt MEDIAL KNEE PAIN, ? MENISCAL INVOLVEMENT, SINCE OCT 2023- SHE HAS DECR Lt KNEE ROM, VERY TTP Lt PES ANSERINE AREA, (+) LLI/ PELVIC ASYMM CREATING MECHANICAL STRESS TO Lt MEDIAL KNEE,(+) STRENGTH DEFICIT; AND LATERAL PATELLAR DRIFT/ INFRAPATELLAR FAT PAD IRRIT. SHE HAS OVERALL DECR FUNCT MOB JOSE,LIMITED FUNCT SQUAT, AND DECR JOSE TO PROLONGED STANDING/WALKING. Frequency and Duration: The patient will be seen 2 x WK x 5 WKS Short Term Goals: *Pt WILL DEMON EFFICIENT GAIT MECHANICS W LEAST RESTRICTIVE ASST DEVICE ON LEVEL GROUND AND STAIRS *Pt'S LEFT MEDIAL KNEE PAIN WILL DECR TO 2-3/10 *Pt DEMON Lt KNEE AROM 0* TO 120* Custodial Goals: *Pt WILL IMPROVE LUMBOPELVIC/ Lt LE STRENGTH TO AT LEAST 5-/5 *Pt RESUME AT LEAST PLOF EVIDENT W IMPROVED LEFI SCORE (AT EVAL 18/80 ) *Pt INDEP W PROGR HEP AND SELF-SX MGMT TECHN Treatment Plan: Modalities to reduce pain, spasms and effusion. Manual therapy to restore motion and function. Therapeutic exercise to improve strength and flexibility. Neuromuscular re-education for posture and balance. Therapeutic activities to return to functional activities of daily living. Electronically signed by: GABY VALLEPT Please sign and return to therapist. Thank you for your referral.
--- NOTE | 2024-03-10 15:22 | MHC.PT.DC ---
[facility] [place] Office [place] Office [place] Office [address] Lyle Ramirez [address] [phone] F: [phone] F: [phone] F: [phone] F: [phone] Physical Therapy Discharge Report Diagnosis: LEFT KNEE DJD, ACUTE MENISCAL INJURY LEFT KNEE-> STRENGTHENING VASTUS MUSCLES, PREVENT PATELLAR TRACKING DYSF; WORK ON SAFE GAIT, GETTING AN MRI TO R/O MENISCAL TEAR Date of Surgery: Date of Evaluation: 01/19/24 Date of Discharge: 03/10/24 Treatments to Date: 14 Cancellations to Date: 1 No Shows to Date: Discharge Status: Achieved Goals Improved Function Independent with HEP Discharge Summary: THE Pt HAS MET HER PT GOALS TO MAX POTENTIAL AT THIS TIME- SHE HAS A THOROUGH HEP AND WE HAVE EDUC HER RE CONT W HEP- HER LEFI SCORE AT D/C IS 28/80. SHE HAS IMPROVED STRENGTH AND ROM IN HER Lt KNEE- WELL MORE EFFICIENT FUNCTIONAL MOB/ GAIT MECH. SHE HAS DECREASED PAIN IN HER LEFT KNEE AND IS PLEASED W HER PROGRESS THUS FAR. Electronically signed by: GABY VALLE,PT Please sign and return to therapist. Thank you for your referral.
== END 2024-07-19 08:59 | disposition home or self-care (01) ==
LOC: HO.PT 12:59
PROVIDERS: PCP Internal Medicine; Visit Provider Physical Medicine & Rehabilitation
DX: M17.12 Unilateral primary osteoarthritis, left knee (principal); S83.8X2D Sprain of other specified parts of left knee, subsequent encounter
CPT/HCPCS: 97110; 97140; 97162

== ENCOUNTER 2024-03-24 11:08 | Outpatient (AMB) | payer MEDICARE, BC, SELFPAY ==
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
== END 2024-03-24 11:39 | disposition home or self-care (01) ==
PROVIDERS: PCP Internal Medicine; Visit Provider Physical Medicine & Rehabilitation
DX: S83.8X2A Sprain of other specified parts of left knee, initial encounter (principal); M17.12 Unilateral primary osteoarthritis, left knee
CPT/HCPCS: 99213

== ENCOUNTER → 2024-03-24 11:08 | Outpatient (BNVA) | payer MEDICARE, BC, SELFPAY | PROVIDERS: PCP Internal Medicine; Visit Provider Physical Medicine & Rehabilitation | DX: M17.12 Unilateral primary osteoarthritis, left knee (principal); S83.8X2A Sprain of other specified parts of left knee, initial encounter; X58.XXXA Exposure to other specified factors, initial encounter; Y93.9 Activity, unspecified; Y92.9 Unspecified place or not applicable; Y99.9 Unspecified external cause status | CPT/HCPCS: 99212 ==

== ENCOUNTER 2024-04-20 13:45 | Outpatient (REF) | payer MEDICARE, BC, SELFPAY ==
--- NOTE | ~2024-04-20 | MM_ITS ---
EXAMINATION: DXA BONE DENSITY AXIAL HISTORY: Estrogen deficiency TECHNIQUE: Blossom Dual energy absorptiometry (DEXA) of the lumbar spine, total left hip, and femoral neck was performed. COMPARISON: Comparison is made with the prior examination dated 12/16/2010. FINDINGS: The bone mineral density of the lumbar spine is 0.872 with a T-score of -2.6, and a Z-score of -1.3. This represents a BMD change of -10.1% compared to the prior exam. This is statistically significant. The bone mineral density of the left total hip is 0.841 with a T-score of -1.3, and a Z-score of 0.0. This represents BMD change of -8.7% compared to the prior exam. This is statistically significant. The bone mineral density of the left femoral neck is 0.822 with a T-score of -1.6, and a Z-score of 0.0. This represents BMD change of -6.9% compared to the prior exam. MM/XR DEXA axial skeleton IMPRESSION: Based on bone mineral density, and according to World Health Organization (WHO) criteria, the diagnosis is consistent with osteoporosis. All bone density values are in grams per centimeter squared (g/cm2). Statistically, 68% of repeat scans fall within 1 SD (+/- 0.010 g/cm2 for AP spine L1-L4) and 1 SD (+/- 0.012 g/cm2 for femur total) FRAX is a trademark of the [employer] [place] for Metabolic Bone Disease, a World Health Organization (WHO) Collaborating Center. Electronically signed by: Arnav Maloney MD 04/21/2024 07:52 AM EST
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
--- OUTSIDE RECORDS SUMMARY | 2024-04-20 16:44 | XMS_ITS ---
Author [facility] Address [address] [facility] [place] [address] Care Team Providers Care Preschool Teacher Aide Name Role Phone Nobel De Leon MD Primary Care Provider Unavaila Cornelia Jimenes Unavailable [phone] Nick Julien Unavailable [phone] Allergies Allergen (clinical drug ingredient) Drug/Non Drug [...] Risk Notes Problem Mononeuropathy of lower limb (691189133) Neuritis of left foot (G57.92) Active confirmed Problem 44289656 Venous insufficiency (I87.2) Active confirmed Vital Signs Height 5ft3in in 01/12/2024 Weight 173 lbs 01/12/2024 BMI 30.64 kg/m2 01/12/2024 Encounters Encounter Location Date Provider [facility] [place] [address] [address] 01/12/2024 Nick Julien Pain in left foot [...] * Elissa FLORES MDOB: (73 yo F)Acc No.[id number]:01/12/2024 Progress Note Patient:?VINElissa GUO Provider:?Nick Julien DPM :1950???Age:73 Y???Sex:Female D ate:01/12/2024 [address]:[address] [place] [address] [facility] Pcp:Noble De Leon MD Subjective: * Chief [...] problem?denies.?Genitourinary:?Blood urine?denies.?Frequent/Painfu/urination/bladder control?denies.?Kidney stones?denies.?Infection (UTI)?denies.?Nephropathy?denies.?sex trans dis (STD)?denies.?Prostate?denies.?Musculoskeletal:?Hammertoes?denies.?Bunions?denies.?Back Pain?denies.?Muscle Cramps/ Resting?denies.?Muscle cramps / walking?denies.?Generalized aches [...] reconciled with the patient * Allergies:?aspirin: carmelo padgettchris[Allergies Verified] Objective: * Vitals:?Ht: 5ft3in, Wt:173, BMI:30.64, [...] REPORT: ?Views:?Are reviewed with the Pt from [facility] 11/05/23 , Pt Defers X-Rays.?Findings:?normal bone and [...] has an appt with Vein specialist at [facility] next week to discuss exam findings.?Dermatologic: ?SKIN [...] Julien DPM Date:?2023 Generated for Meñoi brianne/Vinny/eTransmitting on:?04/20/2024 04:43 PM EST History and Physical Notes * [...] has an appt with Vein specialist at [facility] next week to discuss exam findings PIGMENTATION: normal, B/L X-Rays - IMAGING REPORT Findings: normal b one and soft tissue density consistent for patients age and sex Fracture: Negative fractures i dentified Views: Are reviewed with azalia marshall Pt from [facility] 11/05/23 , Pt Defers X-Rays
== END 2024-04-20 13:46 | disposition home or self-care (01) ==
LOC: HO.MAMMO 13:45
PROVIDERS: PCP Internal Medicine; Visit Provider Internal Medicine
DX: Z13.820 Encounter for screening for osteoporosis (principal); Z78.0 Asymptomatic menopausal state
CPT/HCPCS: 77080

== ENCOUNTER → 2024-04-20 14:00 | Outpatient (BNV) | payer MEDICARE, BC, SELFPAY | PROVIDERS: PCP Internal Medicine; Visit Provider Radiology Diagnostic Radiology | DX: E28.39 Other primary ovarian failure (principal) | CPT/HCPCS: 77080 ==

== ENCOUNTER 2024-05-26 11:12 | Outpatient (AMB) | payer MEDICARE, BC, SELFPAY ==
[2024-05-26 11:18] VITALS: BMI 30.1
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
--- OUTSIDE RECORDS SUMMARY | 2024-05-26 12:12 | XMS_ITS ---
[facility] Address [address] [facility] [place] [address] Care Team Providers Care Lubrication Servicer Name Role Phone Noble De Leon MD Primary Care Provider Unavaila Cornelia Jimenes Unavailable [phone] Nick Julien Unavailable [phone] Allergies Allergen (clinical drug ingredient) Drug/Non Drug [...] Risk Notes Problem Mononeuropathy of lower limb (894050236) Neuritis of left foot (G57.92) Active confirmed Problem 04426969 Venous insufficiency (I87.2) Active confirmed Vital Signs Height 5ft3in in 01/12/2024 Weight 173 lbs 01/12/2024 BMI 30.64 kg/m2 01/12/2024 Encounters Encounter Location Date Provider [facility] [place] [address] [address] 01/12/2024 Nick Julien Pain in left foot [...] * Elissa FLORES MDOB: (73 yo F)Acc No.[id number]:01/12/2024 Progress Note Patient:?VINElissa GUO Provider:?Nick Julien DPM :1950???Age:73 Y???Sex:Female D ate:01/12/2024 Address:[address] [place] [address] [facility] Pcp:Noble De Leon MD Subjective: * Chief [...] REPORT: ?Views:?Are reviewed with the Pt from [facility] 11/05/23 , Pt Defers X-Rays.?Findings:?normal bone and [...] has an appt with Vein specialist at [facility] next week to discuss exam findings.?Dermatologic: ?SKIN [...] Provider:?Nick Julien DPM Date:?2023 Generated for Meñoi brianne/Wayneg/eTransmitting on:?05/26/2024 12:12 PM EDT History and Physical Notes * HPI (History [...] clear Orthopedic FOOT MORPHOLOGY: Pes Cavus structure FOOTWEAR EVALUATION: good condition, exh ibit proper fit and accommodation for pedal deformities. [...] has an appt with Vein specialist at [facility] next week to discuss exam findings PIGMENTATION: normal, B/L X-Rays - IMAGING REPORT Findings: normal b one and soft tissue density consistent for patients age and sex Fracture: Negative fractures i dentified Views: Are reviewed with azalia marshall Pt from [facility] 11/05/23 , Pt Defers X-Rays
== END 2024-05-26 11:42 | disposition home or self-care (01) ==
LOC: HO.HOS 11:13
PROVIDERS: PCP Internal Medicine; Visit Provider Physical Medicine & Rehabilitation
DX: S83.8X2A Sprain of other specified parts of left knee, initial encounter (principal); M17.12 Unilateral primary osteoarthritis, left knee
CPT/HCPCS: 99213

== ENCOUNTER → 2024-05-26 11:12 | Outpatient (BNVA) | payer MEDICARE, BC, SELFPAY | PROVIDERS: PCP Internal Medicine; Visit Provider Physical Medicine & Rehabilitation | DX: S83.8X2D Sprain of other specified parts of left knee, subsequent encounter (principal); M17.12 Unilateral primary osteoarthritis, left knee; X58.XXXD Exposure to other specified factors, subsequent encounter | CPT/HCPCS: 99212 ==

== ENCOUNTER 2024-07-19 12:11 | Outpatient (AMB) | payer MEDICARE, BC, SELFPAY ==
[2024-07-19 12:16] VITALS: BP 110/70; PULSE 69; RESP 17; TEMP 36.9; O2SAT 98; BMI 32.6
--- NOTE | 2024-07-19 12:16 | AM.OFFWIN_ITS ---
Intake Vital Signs 07/19/24 12:16 Height 5 ft 3 in Weight 184 lb BMI 32.6 BP 110/70 Blood Pressure Location Lt brachial Position Sitting Respiration 17 Pulse 69 Pulse Source Pulse Oximeter Temp 98.5 F Temp Source Oral Pulse Oximetry (%) 98 Intake Visit Reasons: EP Covid + Intake Note: Pt is here today cough and stratchy throat and headaches: tested positive x2days ago: sx's started yesterday Patient Tobacco Use Status: Never used Tobacco Allergies aspirin Allergy (Unknown, Verified 07/19/24 12:31) swollen joints HPI HPI Comments History of Present Illness Details History of Present Illness - The patient is a 74-year-old female pr esenting with a recent diagnosis of COVID-19 infection. - Tested positive for COVID-19 on Wednesday with initial asymptomatic presentation. - Subsequently developed severe fatigue and headache, both alleviated by Tylenol. - Presenting symptoms include cough, scr atchy throat, and nasal congestion with occasional nausea; reduced appetite but maintaining hydration with soups and fluids. - No fever, chest pain, shortness of yovana ath, or loss of taste, though anosmia is reported due to congestion. - This is the patient's first instance o f COVID-19; her experiencing a concurrent, more severe case. - Up-to-date with flu vaccination and dhillon d prior 3 COVID-19 vaccines, though not current. - She is requesting paxlovid. - She denies abd pain, n/v/d, rashes, germaine dy aches, fever, or chills. She denies smoking. Physical Exam General: Cooperative, healthy appearing, comfortable, no acute distress and well developed Head: Normal to inspection Ears: Hearing grossly normal bilaterally Nose: Turbinates are clear. Face and sinus: Normal facial exam. No sinus tenderness noted. Neck: Normal visual inspection and Yes full ROM Respiratory: Normal respiratory effort and able to speak in complete sentences. Clear to auscultation bilaterally Cardiovascular: Regular rate and rhythm. Normal S1 and S2 GI: Normal to inspection. Soft to palpation and nontender. No guarding or rebound tenderness noted. Skin: No rashes or lesions noted Patient was informed and verbally consented to the use of an ambient scribe for clinic note documentation during this visit. 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 - Prescribed Paxlovid to potentially mitigate COVID-19 symptomatology, with discussion of its antiviral efficacy for reducing viral impact. - Advise supportive care: Tylenol, fluid intake, chicken broth, and light nourishment as the patient can tolerate. - [facility] quarantine advice: 5 days home isolation post-positive test, followed by 5 days of masking. - Informed of limited benefit of antivirals for individuals but is not necessary for treatment. - Acknowledgement of suspended simvastatin while taking paxlovid. - Suggested consistent symptom monitoring with readiness to address any emerging issues. Medications: New nirmatrelvir-ritonavir 300 mg (150 mg x 2)-100 mg (Paxlovid) take TWO 150 mg tablets of nirmatrelvir with ONE 100 mg tablet of ritonavir twice daily for 5 days PO 30 ea 0RF Coding Level of Care Code Est Pt Level 3 (63780) Diagnoses COVID-19 U07.1
== END 2024-07-19 13:53 | disposition home or self-care (01) ==
PROVIDERS: PCP Physician Assistant; Visit Provider Physician Assistant Medical
DX: U07.1 COVID-19 (principal)

== ENCOUNTER → 2024-07-19 12:11 | Outpatient (BNVA) | payer MEDICARE, BC, SELFPAY | PROVIDERS: PCP Physician Assistant; Visit Provider Physician Assistant Medical | DX: U07.1 COVID-19 (principal) | CPT/HCPCS: 99212 ==

== ENCOUNTER → 2024-08-09 13:42 | Outpatient (BNVA) | payer MEDICARE, BC, SELFPAY | PROVIDERS: PCP Physician Assistant; Visit Provider Physician Assistant | DX: E78.00 Pure hypercholesterolemia, unspecified (principal); M81.0 Age-related osteoporosis without current pathological fracture; H53.9 Unspecified visual disturbance; Z79.899 Other long term (current) drug therapy; Z13.30 Encounter for screening examination for mental health and behavioral disorders, unspecified | CPT/HCPCS: 96127; 99202 ==

== ENCOUNTER 2024-08-09 13:49 | Outpatient (AMB) | payer MEDICARE, BC, SELFPAY ==
[2024-08-09 13:52] VITALS: BP 120/80; PULSE 67; TEMP 36.6; O2SAT 98; BMI 30.1
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
== END 2024-08-09 14:37 | disposition home or self-care (01) ==
LOC: HO.HMCHD 13:49
PROVIDERS: PCP Physician Assistant; Visit Provider Internal Medicine
DX: E78.00 Pure hypercholesterolemia, unspecified (principal); M81.0 Age-related osteoporosis without current pathological fracture

== ENCOUNTER 2024-08-29 08:12 | Outpatient (REF) | payer MEDICARE, BC, SELFPAY ==
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
[2024-08-29 10:48] LABS: Hematocrit 40.1 % (37.0-47.0); Hemoglobin 13.8 g/dl (12.0-16.0); Mean Corpuscular HGB Conc 34.4 g/dl (31.0-35.0); Mean Corpuscular Hemoglobin 30.8 pg (27.0-33.0); Mean Corpuscular Volume 89.5 fL (80.0-98.0); NRBC Abs Auto 0.000 X10*3/uL (0.0-0.012); NRBC Pct Auto 0.0 /100WBC (0.0-0.2); Platelet Count 201 X10*3/uL (160-400); Red Blood Count 4.48 X10*6/uL (4.20-5.50); White Blood Count 4.2 X10*3/uL (4.8-10.8)
[2024-08-29 10:52] LABS: Alanine Aminotransferase 25 U/L (0-31); Albumin Level 4.3 g/dL (3.5-5.0); Alkaline Phosphatase 83 U/L (39-117); Anion Gap 12 (12-20); Aspartate Amino Transferase 32 U/L (5-31); Blood Urea Nitrogen 12 mg/dL (9-16); Calcium 9.4 mg/dL (8.4-10.2); Carbon Dioxide 28 mmol/L (22-29); Chloride 105 mmol/L (96-108); Cholesterol 200 mg/dL (<200); Estimated Glomerular Filt Rate > 60; HDL Cholesterol 64 mg/dL (>40); Potassium 3.7 mmol/L (3.3-5.1); Sodium 141 mmol/L (135-145); Total Protein 6.7 g/dL (6.5-8.0); Triglycerides 100 mg/dL (<150)
[2024-08-29 11:12] LABS: Thyroid Stimulating Hormone 3.64 uIU/mL (0.32-4.0)
[2024-08-29 13:07] LABS: Appearance Urine Clear; Glucose Urine UA Negative (Negative); PH 6.5 (5.0-9.0); Specific Gravity - Urine <= 1.005 (1.005-1.025)
== END 2024-08-29 08:13 | disposition home or self-care (01) ==
LOC: HO.10HDL 08:12
PROVIDERS: Visit Provider Internal Medicine
DX: E78.00 Pure hypercholesterolemia, unspecified (principal)
CPT/HCPCS: 36415; 80048; 80061; 80076; 81003; 84443; 85027

== ENCOUNTER 2025-01-29 12:05 | Outpatient (REF) | payer MEDICARE, BC, SELFPAY ==
--- NOTE | ~2025-01-29 | MM_ITS ---
EXAMINATION: MM SCREENING DIGITAL BREAST TOMOSYNTHESIS, BILATERAL CLINICAL INFORMATION: Screening. Asymptomatic. COMPARISON: Mammography: Comparison is made with available priors TECHNIQUE: Digital breast mammography with tomosynthesis is performed in both the craniocaudal and mediolateral oblique views along with computer-aided detection (CAD). FINDINGS: There are scattered areas of fibroglandular density. There are no significant masses, abnormal calcifications, or other abnormalities. MM/MM tomosynthesis screening BI IMPRESSION: No mammographic evidence of malignancy. ASSESSMENT: BI-RADS Category 1: Negative RECOMMENDATION: Routine annual mammography screening. 1 year F/U This examination should not preclude the clinical evaluation of a suspicious palpable abnormality. This patient's information was entered into a reminder system with a target due date for their next mammogram. Electronically signed by: Nehal Vallejo DO 01/31/2025 04:57 PM GYPSY
== END 2025-01-29 12:06 | disposition home or self-care (01) ==
LOC: HO.MAMMO 12:05
PROVIDERS: PCP Internal Medicine; Visit Provider Internal Medicine
DX: Z12.31 Encounter for screening mammogram for malignant neoplasm of breast (principal)
CPT/HCPCS: 77063; 77067

== ENCOUNTER → 2025-01-29 12:15 | Outpatient (BNV) | payer MEDICARE, BC, SELFPAY | PROVIDERS: PCP Internal Medicine; Visit Provider Internal Medicine | DX: Z12.31 Encounter for screening mammogram for malignant neoplasm of breast (principal) | CPT/HCPCS: 77063; 77067 ==